=== PATIENT | male | born 1995 | race Hispanic/Latino ===

== ENCOUNTER 2023-07-11 07:12 | Emergency (ER) | payer BC ==
[~2023-07-11] VITALS: Ht 180.3 cm; Wt 93.0 kg
[2023-07-11 07:52] LABS: BASOPHILS % 0.2 % (0.0-1.0); EOSINOPHILS % 0.2 % (0.0-6.0); HEMATOCRIT 47.6 % (38.2-49.6); HEMOGLOBIN 16.2 g/dL (14.0-18.0); LYMPHOCYTES # (AUTO) 0.7 (1.0-3.2); LYMPHOCYTES % 16.4 % (18.0-39.1); MEAN CORPUSCULAR HEMOGLOBIN 29.5 pg (28-32); MEAN CORPUSCULAR VOLUME 86.7 fL (81-99); MONOCYTES # (AUTO) 0.6 (0.2-0.8); MONOCYTES % 12.6 % (4.4-11.3); NEUTROPHILS # (AUTO) 3.2 (2.1-6.9); NEUTROPHILS % 70.6 % (38.7-80.0); PLATELET COUNT 170 x10e3/uL (140-360); RED BLOOD COUNT 5.49 x10e6/uL (4.3-5.7); RED CELL DISTRIBUTION WIDTH 12.3 % (11.7-14.4); WHITE BLOOD COUNT 4.51 x10e3/uL (4.8-10.8)
[2023-07-11] MEDS: KETOROLAC TROMETHAMINE 30 MG/ML VIAL IV STA (08:03)
[2023-07-11] MEDS: SODIUM CHLORIDE 0.9% 1000ML 1,000 ML IV STA (08:04)
[2023-07-11 08:17] LABS: ANION GAP 15.7 mmol/L (8-16); CALCIUM 9.4 mg/dL (8.4-10.2); CREATININE, SERUM 0.88 mg/dL (0.72-1.25); POTASSIUM 3.7 mmol/L (3.5-5.1)
[2023-07-11 08:24] VITALS: O2SAT 98
[2023-07-11 08:25] LABS: TROPONIN I 0.003 ng/mL (0-0.300)
== END 2023-07-11 11:33 | disposition home or self-care (01) ==
LOC: ER 07:20
DX: R05.9 Cough, unspecified (principal); R09.1 Pleurisy; F90.9 Attention-deficit hyperactivity disorder, unspecified type; Z11.52 Encounter for screening for COVID-19
CPT/HCPCS: 36415; 71046; 80048; 82550; 84484; 85025; 85379; 87400; 93005; 99284; J1885; J7030; U0002